=== PATIENT | male | born 1980 | race Caucasian/White ===

== ENCOUNTER 2017-02-10 20:42 | Emergency (ER) | payer BC ==
[~2017-02-10] VITALS: Ht 177.8 cm; Wt 113.6 kg
[~2017-02-10 20:42] MED LIST: DOMPERIDONE10 MG/CAP PO; LAMICTAL25 MG PO; NORCO 325 MG-51 TAB PO; ZOLOFT100 MG PO; ZYRTEC10 MG PO
[2017-02-10 20:45] VITALS: BP 129/69; TEMP 98.6
[2017-02-10] MEDS ORDERED: DURICEF 500MG500 MG PO (21:37)
[2017-02-10 22:02] VITALS: PULSE 80
== END 2017-02-10 22:00 | disposition home or self-care (01) ==
LOC: COL.ER 20:42
DX: T81.31XA Disruption of external operation (surgical) wound, not elsewhere classified, initial encounter (principal)
CPT/HCPCS: J1170

== ENCOUNTER → 2017-06-01 | Outpatient (REF) ==
[~2017-06-01] MED LIST changes: +DURICEF 500MG500 MG PO
== END ==
LOC: WSOH 07:55
DX: Z02.4 Encounter for examination for driving license (principal)

== ENCOUNTER 2021-02-02 12:58 | Outpatient (RCR) | payer OTHER | END 2021-03-12 | disposition home or self-care (01) | LOC: WSOH | DX: M75.42 Impingement syndrome of left shoulder (principal); F41.8 Other specified anxiety disorders; E78.00 Pure hypercholesterolemia, unspecified; Z90.89 Acquired absence of other organs; Y99.0 Civilian activity done for income or pay ==

== ENCOUNTER → 2021-07-21 | Outpatient (CLI) | payer OTHER | LOC: COL.RAD 09:15 | DX: M77.01 Medial epicondylitis, right elbow (principal) ==

== ENCOUNTER → 2022-06-17 | Outpatient (CLI) | payer BC | LOC: COL.PUL 10:57 | DX: R05.9 Cough, unspecified (principal); R06.02 Shortness of breath ==